=== PATIENT | male | born 1985 | race African-American/Black ===

== ENCOUNTER 2018-07-12 08:58 | Emergency (ER) | payer MEDICAID ==
[~2018-07-12] VITALS: Ht 185.4 cm; Wt 122.0 kg
[2018-07-12] MEDS ORDERED: KETOROLAC 60MG/2ML VIAL IM ONE (13:00)
[2018-07-12 13:14] VITALS: BP 122/85
== END 2018-07-12 16:35 | disposition home or self-care (01) ==
LOC: ER 09:27
DX: S63.065A Dislocation of metacarpal (bone), proximal end of left hand, initial encounter (principal); Y04.0XXA Assault by unarmed brawl or fight, initial encounter; Y93.89 Activity, other specified; Y92.9 Unspecified place or not applicable; S60.222A Contusion of left hand, initial encounter
CPT/HCPCS: 29125; 73130; 96372; 99284; J1885

== ENCOUNTER 2021-04-10 10:27 | Emergency (ER) | payer MEDICAID, OTHER ==
[~2021-04-10] VITALS: Ht 185.4 cm; Wt 118.0 kg
[2021-04-10] MEDS ORDERED: IBUPROFEN 800MG TABLET PO ONE (10:45)
[2021-04-10] MEDS ORDERED: IBUP-2029 MT (11:21)
[2021-04-10 11:34] VITALS: BP 118/85
== END 2021-04-10 11:34 | disposition home or self-care (01) ==
LOC: ER 10:56
DX: S60.222A Contusion of left hand, initial encounter (principal); Z79.899 Other long term (current) drug therapy; X58.XXXA Exposure to other specified factors, initial encounter; Y93.89 Activity, other specified; Y92.89 Other specified places as the place of occurrence of the external cause; Y99.8 Other external cause status
CPT/HCPCS: 73130; 99283